=== PATIENT | female | born 1950 | race Caucasian/White ===

== ENCOUNTER 2020-03-19 08:29 | Outpatient (CLI) | payer MEDICARE | END 2020-03-19 23:59 | disposition home or self-care (01) | LOC: CVU 08:29 | PROVIDERS: ATTEND Internal Medicine Cardiovascular Disease | DX: I08.3 Combined rheumatic disorders of mitral, aortic and tricuspid valves (principal) | CPT/HCPCS: 93306 ==

== ENCOUNTER 2020-04-25 14:35 | Outpatient (CLI) | payer MEDICARE ==
[2020-04-25] MEDS ORDERED: CLOP75TA52 PO (15:18)
[2020-04-25] MEDS ORDERED: BENA20TA54 PO (15:18)
[2020-04-25] MEDS ORDERED: ASPI-496 PO (15:18)
[2020-04-25] MEDS ORDERED: ATOR80TA PO (15:18)
[2020-04-25] MEDS ORDERED: GLIP5TAB10 PO (15:18)
[2020-04-25] MEDS ORDERED: FERR-46 PO (15:18)
[2020-04-25] MEDS ORDERED: CARV-39 PO (15:18)
[2020-04-25] MEDS ORDERED: AMLO2.5T5 PO (15:18)
[2020-04-25 16:00] LABS: BASOPHILS # (AUTO) 0.08 x10^3/uL (0-0.1); BASOPHILS % (AUTO) 1 % (0-1); EOSINOPHILS # (AUTO) 0.19 x10^3/uL (0-0.4); EOSINOPHILS % (AUTO) 2 % (1-7); LYMPHOCYTES # (AUTO) 1.78 x10^3/uL (1-3.4); LYMPHOCYTES % (AUTO) 22 % (22-44); MD NO; MEAN CORPUSCULAR HEMOGLOBIN 31.3 pg (27.0-34.8); MEAN CORPUSCULAR HGB CONC 32.9 g/dL (32.4-35.8); MEAN CORPUSCULAR VOLUME 95.3 fL (80-100); MEAN PLATELET VOLUME 6.9 fL (7.4-10.4); MONOCYTES # (AUTO) 0.48 x10^3/uL (0.2-0.8); MONOCYTES % (AUTO) 6 % (2-9); NEUTROPHILS # (AUTO) 5.57 x10^3/uL (1.8-6.8); NEUTROPHILS % (AUTO) 69 % (42-75); PLATELET COUNT 289 x10^3/uL (130-400); RED BLOOD COUNT 3.53 x10^6/uL (3.82-5.3); RED CELL DISTRIBUTION WIDTH 16.4 % (9.6-15.2)
[2020-04-25 16:08] LABS: INTERNATIONAL NORMALIZED RATIO 1.07 (0.93-1.1); PROTHROMBIN TIME 11.4 Seconds (9.6-11.5)
[2020-04-25 16:10] LABS: ALBUMIN 3.7 g/dL (3.4-5.0); ANION GAP 8 mmol/L (5-15); CHLORIDE 96 mmol/L (98-107)
[2020-04-25 16:13] LABS: ALANINE AMINOTRANSFERASE 32 U/L (12-78); ALKALINE PHOSPHATASE 95 U/L (45-117); BILIRUBIN,TOTAL 0.3 mg/dL (0.2-1.0); CREATININE 4.61 mg/dL (0.55-1.02); TOTAL PROTEIN 7.3 g/dL (6.4-8.2)
== END 2020-04-25 23:59 | disposition home or self-care (01) ==
LOC: STAR 14:35
PROVIDERS: ATTEND Surgery
DX: Z01.818 Encounter for other preprocedural examination (principal); Z11.59 Encounter for screening for other viral diseases; N18.6 End stage renal disease
CPT/HCPCS: 36415; 80053; 85025; 85610; 85730; 93005; U0001

== ENCOUNTER 2020-04-30 16:15 | Day surgery (SDC) | payer MEDICARE ==
[~2020-04-30] VITALS: Ht 154.9 cm; Wt 52.4 kg
[~2020-04-30 16:15] MED LIST: AMLO2.5T5 PO; ASPI-496 PO; ATOR80TA PO; BENA20TA54 PO; CARV-39 PO; CLOP75TA52 PO; FERR-46 PO; GLIP5TAB10 PO
[2020-04-30] MEDS ORDERED: hydrALAzine 20 MG/ML, 1ML IV ONE (16:30)
[2020-04-30] MEDS ORDERED: CHLORHEXIDINE 15 ML UDC MM ONE (16:30)
[2020-04-30] MEDS ORDERED: CHLORHEXIDINE 15 ML UDC ONE (16:41)
[2020-04-30] MEDS ORDERED: hydrALAzine 20 MG/ML, 1ML ONE (16:42)
[2020-04-30] MEDS ORDERED: OXYcodone 5 MG/5 ML ORAL.SOL UDC PO PRN (18:00)
[2020-04-30] MEDS ORDERED: SODIUM CHLORIDE 0.9% 1,000 ML IV SCH (18:00)
[2020-04-30] MEDS ORDERED: FENTANYL PF 100 MCG/2ML ONE (18:49)
[2020-04-30] MEDS ORDERED: PROTAMINE SULFATE 10 MG/ML, 5ML ONE (18:51)
[2020-04-30] MEDS ORDERED: THROMBIN 5,000 UNIT VIAL TP ONE (18:52)
[2020-04-30] MEDS ORDERED: BACITRACIN 50,000 UNIT ONE (18:52)
[2020-04-30] MEDS ORDERED: HEPARIN 1,000 UNITS/ML, 30ML ONE (18:52)
[2020-04-30] MEDS ORDERED: BUPIVACAINE/PF 0.25% ONE (19:07)
[2020-04-30] MEDS ORDERED: HEPARIN 1,000 UNITS/ML, 10ML ONE (19:07)
[2020-04-30] MEDS ORDERED: MIDAZOLAM 1 MG/ML, 2ML ONE (19:19)
[2020-04-30] MEDS ORDERED: PROPOFOL 10 MG/ML, 50ML ONE (19:20)
[2020-04-30] MEDS ORDERED: CEFAZOLIN 1,000 MG ONE (19:20)
[2020-04-30] MEDS ORDERED: LIDOCAINE 1%, 20ML ONE (19:26)
[2020-04-30] MEDS ORDERED: HYDR-3237 PO (21:46)
== END 2020-04-30 22:20 | disposition home or self-care (01) ==
LOC: OR 16:15 → 4NE 21:00 → OR 22:20
PROVIDERS: ATTEND Surgery
DX: E11.22 Type 2 diabetes mellitus with diabetic chronic kidney disease (principal); I13.2 Hypertensive heart and chronic kidney disease with heart failure and with stage 5 chronic kidney disease, or end stage renal disease; N18.6 End stage renal disease; I50.9 Heart failure, unspecified; I25.10 Atherosclerotic heart disease of native coronary artery without angina pectoris; I25.2 Old myocardial infarction; Z79.82 Long term (current) use of aspirin; Z79.84 Long term (current) use of oral hypoglycemic drugs; Z79.02 Long term (current) use of antithrombotics/antiplatelets; Z79.899 Other long term (current) drug therapy; Z88.0 Allergy status to penicillin; Z99.2 Dependence on renal dialysis; Z98.890 Other specified postprocedural states; Z83.3 Family history of diabetes mellitus; Z82.49 Family history of ischemic heart disease and other diseases of the circulatory system
CPT/HCPCS: 36821; 82962; J0360; J0690; J1644; J2250; J2704; J3010; J3490; G0378; J2720

== ENCOUNTER → 2020-09-02 | Outpatient (CLI) | payer MEDICARE ==
[~2020-09-02] MED LIST changes: +HYDR-3237 PO
== END | disposition home or self-care (01) ==
LOC: CFH 14:07
PROVIDERS: ATTEND Internal Medicine Cardiovascular Disease
DX: I08.8 Other rheumatic multiple valve diseases (principal); I25.10 Atherosclerotic heart disease of native coronary artery without angina pectoris; I11.9 Hypertensive heart disease without heart failure; I10 Essential (primary) hypertension; E78.5 Hyperlipidemia, unspecified; I25.2 Old myocardial infarction; E11.9 Type 2 diabetes mellitus without complications
CPT/HCPCS: 93306

== ENCOUNTER 2021-03-06 14:35 | Inpatient (IN) | payer MEDICARE ==
[~2021-03-06] VITALS: Ht 154.9 cm; Wt 56.8 kg
[2021-03-06 15:23] LABS: ALBUMIN 3.9 g/dL (3.4-5.0); ANION GAP 8 mmol/L (5-15); BASOPHILS % (AUTO) 1 % (0-1); CALCIUM 10.2 mg/dL (8.5-10.1); CHLORIDE 105 mmol/L (98-107); EOSINOPHILS % (AUTO) 4 % (1-7); LYMPHOCYTES % (AUTO) 14 % (22-44); MEAN CORPUSCULAR HEMOGLOBIN 30.4 pg (27.0-34.8); MEAN CORPUSCULAR HGB CONC 32.8 g/dL (32.4-35.8); MEAN PLATELET VOLUME 7.4 fL (7.4-10.4); MONOCYTES % (AUTO) 4 % (2-9); NEUTROPHILS % (AUTO) 77 % (42-75); PLATELET COUNT 239 x10^3/uL (130-400); RED BLOOD COUNT 4.06 x10^6/uL (3.82-5.3); RED CELL DISTRIBUTION WIDTH 17.2 % (9.6-15.2)
[2021-03-06 15:26] LABS: ALANINE AMINOTRANSFERASE 29 U/L (12-78); ALKALINE PHOSPHATASE 82 U/L (45-117); BILIRUBIN,TOTAL 0.5 mg/dL (0.2-1.0); CREATININE 8.22 mg/dL (0.55-1.02); TOTAL PROTEIN 7.5 g/dL (6.4-8.2)
--- NOTE | 2021-03-06 16:12 | NUR ---
FACTORY WORKER: PT AMBULATORY TO ROOM FROM LOBBY AT THIS TIME.
[2021-03-06] MEDS ORDERED: DIAZEPAM 5 MG TABLET ONE (16:58)
[2021-03-06] MEDS ORDERED: DIAZEPAM 5 MG TABLET PO ONE (17:00)
--- NOTE | 2021-03-06 17:08 | NUR ---
PT BACK FROM CT. BP CUFF, PULSE OX PLACED, VSS/UPDATED IN COMPUTER. VALIUM GIVEN FOR L RIB AND FLANK PAIN. CALL LIGHT WITHIN REACH. WARM BLANKET AND PILLOW PROVIDED, LIGHTS DIMMED.
[2021-03-06] MEDS ORDERED: ASPI81TA45 PO (18:29)
[2021-03-06] MEDS ORDERED: GABAPENTIN PO (18:29)
[2021-03-06] MEDS ORDERED: [UNRECOGNIZED DRUG - OTHER] PO (18:29)
[2021-03-06] MEDS ORDERED: HYDR-3342 PO (18:29)
[2021-03-06] MEDS ORDERED: METH-640 PO (18:29)
--- NOTE | 2021-03-06 18:57 | NUR ---
BEDSIDE REPORT FROM QUINTON WHITTEN
[2021-03-06 19:20] LABS: BASOPHILS % (AUTO) 1 % (0-1); EOSINOPHILS % (AUTO) 4 % (1-7); LYMPHOCYTES % (AUTO) 15 % (22-44); MEAN CORPUSCULAR HEMOGLOBIN 30.4 pg (27.0-34.8); MEAN CORPUSCULAR HGB CONC 33.1 g/dL (32.4-35.8); MEAN PLATELET VOLUME 7.2 fL (7.4-10.4); MONOCYTES % (AUTO) 4 % (2-9); NEUTROPHILS % (AUTO) 77 % (42-75); PLATELET COUNT 235 x10^3/uL (130-400); RED BLOOD COUNT 3.83 x10^6/uL (3.82-5.3); RED CELL DISTRIBUTION WIDTH 17.1 % (9.6-15.2)
[2021-03-06 19:31] LABS: INTERNATIONAL NORMALIZED RATIO 1.16 (0.93-1.1); PROTHROMBIN TIME 12.4 Seconds (9.6-11.5)
[2021-03-06 19:33] LABS: ALBUMIN 3.6 g/dL (3.4-5.0); ANION GAP 10 mmol/L (5-15); CALCIUM 9.7 mg/dL (8.5-10.1); CHLORIDE 107 mmol/L (98-107); CREATININE 8.34 mg/dL (0.55-1.02)
[2021-03-06] MEDS ORDERED: MORPHINE SULFATE 4 MG/ML, 1ML ONE (20:28)
[2021-03-06] MEDS: HEPARIN 5,000 UNITS/ML, 1ML SQ SCH (20:30)
[2021-03-06] MEDS ORDERED: PROMETHAZINE 25 MG/ML, 1ML IM PRN (20:30)
[2021-03-06] MEDS ORDERED: ONDANSETRON 2MG/ML, 2ML IVPush PRN (20:30)
[2021-03-06] MEDS ORDERED: POLYETHYLENE GLYCOL 17 GM PACKET PO PRN (20:30)
[2021-03-06] MEDS ORDERED: ONDANSETRON ODT 4 MG PO PRN (20:30)
[2021-03-06] MEDS ORDERED: BISACODYL 10 MG SUPP PR PRN (20:30)
[2021-03-06] MEDS ORDERED: DOCUSATE 100 MG CAPSULE PO PRN (20:30)
--- NOTE | 2021-03-06 20:30 | NUR ---
PT REPORTING NO IMPROVEMENT OF PAIN, PT REQUESTING PAIN MEDICATION AT THIS TIME. PT MEDICATED PER EMAR. NO ADDITIONAL NEEDS AT THIS TIME. CALL LIGHT AND PERSONAL BELONGINGS WITHIN REACH. SPOUSE AT BEDSIDE.
[2021-03-06] MEDS: morphine SULFATE 10 MG/ML, 1ML IVPush PRN (20:33)
--- NOTE | 2021-03-06 20:54 | NUR ---
Pt to be admitted to TELE2, room 406. Report called to JAYCEE.
[2021-03-06 21:22] VITALS: BP 186/63
[2021-03-06] MEDS: MULTIVITS,STRESS FORMULA 1 TABLET PO SCH (21:30)
[2021-03-06 21:49] VITALS: BP 182/65
[2021-03-06] MEDS ORDERED: DILTIAZEM 5 MG/ML, 5ML IVPush PRN (22:00)
[2021-03-06] MEDS: BENAZEPRIL 20 MG TABLET PO SCH (22:01)
[2021-03-06] MEDS: ATORVASTATIN 80 MG TABLET PO SCH (22:01)
[2021-03-06] MEDS: GABAPENTIN 100 MG CAPSULE PO SCH (22:01)
[2021-03-06 22:51] VITALS: BP 174/64
[2021-03-07] VITALS (7 sets, daily range): BP systolic 162–199; BP diastolic 62–75
[2021-03-07] MEDS: OXYcodone IR 5MG TABLET PO PRN ×3 (01:16→20:10)
[2021-03-07] MEDS: HEPARIN 5,000 UNITS/ML, 1ML SQ SCH ×3 (04:30→20:12)
[2021-03-07] MEDS: ACETAMINOPHEN 325 MG TABLET PO PRN (04:52)
[2021-03-07 06:26] LABS: BASOPHILS % (AUTO) 2 % (0-1); EOSINOPHILS % (AUTO) 4 % (1-7); LYMPHOCYTES % (AUTO) 17 % (22-44); MEAN CORPUSCULAR HEMOGLOBIN 30.2 pg (27.0-34.8); MEAN CORPUSCULAR HGB CONC 32.9 g/dL (32.4-35.8); MEAN PLATELET VOLUME 7.4 fL (7.4-10.4); MONOCYTES % (AUTO) 3 % (2-9); NEUTROPHILS % (AUTO) 74 % (42-75); PLATELET COUNT 217 x10^3/uL (130-400); RED BLOOD COUNT 3.68 x10^6/uL (3.82-5.3); RED CELL DISTRIBUTION WIDTH 17.2 % (9.6-15.2)
[2021-03-07 06:27] LABS: CHLORIDE 108 mmol/L (98-107)
[2021-03-07 06:43] LABS: ALANINE AMINOTRANSFERASE 25 U/L (12-78); ALBUMIN 3.3 g/dL (3.4-5.0); ALKALINE PHOSPHATASE 64 U/L (45-117); ANION GAP 10 mmol/L (5-15); BILIRUBIN,TOTAL 0.4 mg/dL (0.2-1.0); CALCIUM 9.2 mg/dL (8.5-10.1); CHOL/HDL RATIO 2.4; CHOLESTEROL, TOTAL 93 mg/dL (140-239); CREATININE 8.63 mg/dL (0.55-1.02); HDL CHOL % 41 % (28-40); HDL CHOLESTEROL (DIRECT) 38 mg/dL (40-60); LDL CHOLESTEROL,CALCULATED 27 mg/dL (54-169); LDL/HDL RATIO 0.7 (0.5-3.0); TOTAL PROTEIN 6.4 g/dL (6.4-8.2); TRIGLYCERIDES 139 mg/dL (50-200); VLDL CHOLESTEROL 28 mg/dL (0-25)
[2021-03-07 08:51] LABS: MICROSCOPIC AUTO
[2021-03-07] MEDS: METHOCARBAMOL 750 MG TABLET PO SCH (09:47)
[2021-03-07] MEDS: GABAPENTIN 100 MG CAPSULE PO SCH ×3 (09:47→20:09)
[2021-03-07] MEDS: ASPIRIN 81 MG TABLET EC PO SCH (09:48)
[2021-03-07] MEDS: BENAZEPRIL 20 MG TABLET PO SCH ×2 (09:48→20:09)
[2021-03-07] MEDS: CLOPIDOGREL 75 MG TABLET PO SCH (09:48)
[2021-03-07] MEDS: hydrALAzine 20 MG/ML, 1ML IVPush PRN (12:17)
[2021-03-07] MEDS: CARVEDILOL 25 MG TABLET PO SCH (18:29)
[2021-03-07] MEDS: ATORVASTATIN 80 MG TABLET PO SCH (20:09)
[2021-03-07] MEDS: MULTIVITS,STRESS FORMULA 1 TABLET PO SCH (20:09)
[2021-03-08] MEDS: ACETAMINOPHEN 325 MG TABLET PO PRN ×2 (00:08→08:35)
[2021-03-08 00:18] VITALS: BP 169/66
[2021-03-08] MEDS: morphine SULFATE 10 MG/ML, 1ML IVPush PRN (03:06)
[2021-03-08] MEDS: HEPARIN 5,000 UNITS/ML, 1ML SQ SCH ×2 (03:50→08:32)
[2021-03-08 06:11] VITALS: BP 173/64
[2021-03-08] MEDS: CARVEDILOL 25 MG TABLET PO SCH (06:13)
[2021-03-08] MEDS ORDERED: AMLODIPINE 10 MG TAB ONE (08:12)
[2021-03-08] MEDS ORDERED: OXYC1TAB16 PO (08:21)
[2021-03-08] MEDS ORDERED: NAPR220C62 PO (08:21)
[2021-03-08] MEDS: GABAPENTIN 100 MG CAPSULE PO SCH (08:30)
[2021-03-08] MEDS: METHOCARBAMOL 750 MG TABLET PO SCH (08:30)
[2021-03-08] MEDS: BENAZEPRIL 20 MG TABLET PO SCH (08:31)
[2021-03-08] MEDS: ASPIRIN 81 MG TABLET EC PO SCH (08:31)
[2021-03-08] MEDS: CLOPIDOGREL 75 MG TABLET PO SCH (08:31)
[2021-03-08 08:59] VITALS: BP 190/109
[2021-03-08] MEDS ORDERED: AMLODIPINE 10 MG TAB PO SCH (09:00)
[2021-03-08 12:56] VITALS: BP 171/55
[2021-03-08] MEDS: hydrALAzine 20 MG/ML, 1ML IVPush PRN (13:07)
== END 2021-03-08 14:13 | disposition home or self-care (01) | DRG 183 ==
LOC: ED 18:19 → EDIP 18:58 → 4WST 21:16 → DCLOUNGE 03-08 14:03
PROVIDERS: ADMIT Internal Medicine; ATTEND Internal Medicine
DX: S22.42XA Multiple fractures of ribs, left side, initial encounter for closed fracture (principal); N18.6 End stage renal disease; I13.2 Hypertensive heart and chronic kidney disease with heart failure and with stage 5 chronic kidney disease, or end stage renal disease; J98.11 Atelectasis; N25.0 Renal osteodystrophy; D63.1 Anemia in chronic kidney disease; E11.22 Type 2 diabetes mellitus with diabetic chronic kidney disease; E78.00 Pure hypercholesterolemia, unspecified; E78.5 Hyperlipidemia, unspecified; G89.29 Other chronic pain; I50.9 Heart failure, unspecified; W17.89XA Other fall from one level to another, initial encounter; Z79.02 Long term (current) use of antithrombotics/antiplatelets; Z99.2 Dependence on renal dialysis; Y93.89 Activity, other specified; Y92.89 Other specified places as the place of occurrence of the external cause; Y99.8 Other external cause status; Z82.49 Family history of ischemic heart disease and other diseases of the circulatory system; Z88.0 Allergy status to penicillin; Z79.899 Other long term (current) drug therapy; Z79.82 Long term (current) use of aspirin
CPT/HCPCS: 36415; 71250; 80048; 80053; 80061; 81001; 82040; 83036; 83735; 84100; 84443; 85025; 85610; 87086; 90935; 93005; 96374; 99285; G0378; J0360; J2270

== ENCOUNTER 2021-03-14 09:24 | Observation (INO) | payer MEDICARE ==
[~2021-03-14] VITALS: Ht 154.9 cm; Wt 54.6 kg
[~2021-03-14 09:24] MED LIST changes: +ASPI81TA45 PO; +GABAPENTIN PO; +HYDR-3342 PO; +METH-640 PO; +NAPR220C62 PO; +OXYC1TAB17 PO; +[UNRECOGNIZED DRUG - OTHER] PO
--- NOTE | 2021-03-14 09:50 | NUR ---
PT TO ROOM 33 W/ C/O N/V X 1 WK. DENIES DIARRHEA. ALSO C/O INCREASED WEAKNESS AND LOOS OF APPETITE. PT HAD DIALYSIS LAST WEDNESDAY 7 DAYS AGO. PT WAS SEEN HERE 1 WK AGO AFTER FALLING OUT OF A HAMMOCK AND HAVING RIB FX. DENIES CP/SOB/COUGH. PT RESTING ON GURNEY. NADN. MONITORS APPLIED. VSS. WARM BLANKET PROVIDED. TAQUERIA WATT AT BEDSIDE FOR EVAL.
[2021-03-14] MEDS ORDERED: SODIUM CHLORIDE 0.9% 1,000ML IVBOLUS ONE (10:00)
[2021-03-14] MEDS ORDERED: SODIUM CHLORIDE FLUSH 10ML SYR IVF ONE (10:00)
[2021-03-14] MEDS ORDERED: FAMOTIDINE 20 MG/2 ML IVPush ONE (10:00)
[2021-03-14] MEDS ORDERED: ONDANSETRON 2MG/ML, 2ML IVPush ONE (10:00)
[2021-03-14] MEDS ORDERED: FAMOTIDINE 20 MG/2 ML ONE (10:13)
[2021-03-14] MEDS ORDERED: ONDANSETRON 2MG/ML, 2ML ONE (10:13)
[2021-03-14 10:26] LABS: BASOPHILS % (AUTO) 1 % (0-1); EOSINOPHILS % (AUTO) 1 % (1-7); LYMPHOCYTES % (AUTO) 7 % (22-44); MEAN CORPUSCULAR HEMOGLOBIN 29.9 pg (27.0-34.8); MEAN CORPUSCULAR HGB CONC 33.1 g/dL (32.4-35.8); MEAN PLATELET VOLUME 7.7 fL (7.4-10.4); MONOCYTES % (AUTO) 3 % (2-9); NEUTROPHILS % (AUTO) 87 % (42-75); PLATELET COUNT 249 x10^3/uL (130-400); RED BLOOD COUNT 4.12 x10^6/uL (3.82-5.3); RED CELL DISTRIBUTION WIDTH 17.2 % (9.6-15.2)
[2021-03-14 10:33] LABS: ALANINE AMINOTRANSFERASE 22 U/L (12-78); ALBUMIN 3.6 g/dL (3.4-5.0); ANION GAP 12 mmol/L (5-15); CALCIUM 9.9 mg/dL (8.5-10.1); CHLORIDE 99 mmol/L (98-107)
[2021-03-14 10:35] LABS: ALKALINE PHOSPHATASE 80 U/L (45-117); BILIRUBIN,TOTAL 0.7 mg/dL (0.2-1.0); TOTAL PROTEIN 7.4 g/dL (6.4-8.2)
[2021-03-14 10:46] LABS: MICROSCOPIC AUTO
[2021-03-14 10:50] LABS: MD SCAN
[2021-03-14] MEDS ORDERED: SODIUM CHLORIDE FLUSH 10ML SYR IVF PRN (11:00)
--- NOTE | 2021-03-14 11:10 | NUR ---
PT RESTING ON GURNEY. NADN. BURDICK.
--- NOTE | 2021-03-14 12:06 | NUR ---
PT RESTING ON GURNEY. NADN. BURDICK.
--- NOTE | 2021-03-14 12:25 | NUR ---
REPORT GIVEN TO BLACK KEY RN. ALL QUESTIONS ANSWERED. AWAITING PT TRANSPORT.
[2021-03-14] MEDS ORDERED: ACETAMINOPHEN 325 MG TABLET PO PRN (12:30)
[2021-03-14] MEDS ORDERED: ONDANSETRON ODT 4 MG PO PRN (12:30)
[2021-03-14] MEDS: HEPARIN 5,000 UNITS/ML, 1ML SQ SCH ×2 (12:30→19:52)
[2021-03-14] MEDS ORDERED: ENALAPRILAT 1.25 MG/ML, 2ML IVPush PRN (12:30)
[2021-03-14 13:10] VITALS: BP 193/67
[2021-03-14] MEDS: ONDANSETRON 2MG/ML, 2ML IVPush PRN ×2 (13:16→18:25)
[2021-03-14 18:12] VITALS: BP 210/69
[2021-03-14] MEDS ORDERED: ENALAPRILAT 1.25 MG/ML, 1ML ONE ×2 (18:12→19:42)
[2021-03-14 19:47] VITALS: BP 169/77
[2021-03-14 19:56] VITALS: BP 167/67
[2021-03-14] MEDS: CARVEDILOL 25 MG TABLET PO SCH (20:09)
[2021-03-14] MEDS: ATORVASTATIN 80 MG TABLET PO SCH (20:10)
[2021-03-14] MEDS: AMLODIPINE 5 MG TABLET PO SCH (20:10)
[2021-03-14] MEDS: BENAZEPRIL 20 MG TABLET PO SCH (20:10)
[2021-03-14 21:58] VITALS: BP 152/64
[2021-03-15 01:36] VITALS: BP 142/67
[2021-03-15] MEDS: HEPARIN 5,000 UNITS/ML, 1ML SQ SCH ×3 (04:30→20:28)
[2021-03-15 05:48] LABS: BASOPHILS % (AUTO) 1 % (0-1); EOSINOPHILS % (AUTO) 1 % (1-7); LYMPHOCYTES % (AUTO) 18 % (22-44); MEAN CORPUSCULAR HEMOGLOBIN 30.3 pg (27.0-34.8); MEAN CORPUSCULAR HGB CONC 34.4 g/dL (32.4-35.8); MEAN PLATELET VOLUME 7.1 fL (7.4-10.4); MONOCYTES % (AUTO) 7 % (2-9); NEUTROPHILS % (AUTO) 74 % (42-75); PLATELET COUNT 247 x10^3/uL (130-400); RED CELL DISTRIBUTION WIDTH 16.8 % (9.6-15.2)
[2021-03-15 05:52] LABS: MD NO
[2021-03-15] MEDS: ONDANSETRON 2MG/ML, 2ML IVPush PRN ×2 (05:54→11:09)
[2021-03-15 06:01] LABS: ANION GAP 10 mmol/L (5-15); CALCIUM 9.1 mg/dL (8.5-10.1); CHLORIDE 95 mmol/L (98-107); CREATININE 7.06 mg/dL (0.55-1.02)
[2021-03-15 07:46] VITALS: BP 148/64
[2021-03-15] MEDS ORDERED: PROCHLORPERAZINE 10MG TABLET PO PRN (08:30)
[2021-03-15] MEDS: AMLODIPINE 5 MG TABLET PO SCH ×2 (09:00→20:27)
[2021-03-15] MEDS: METHOCARBAMOL 750 MG TABLET PO SCH (09:00)
[2021-03-15] MEDS: ASPIRIN 81 MG TABLET EC PO SCH ×2 (09:00→16:50)
[2021-03-15] MEDS: BENAZEPRIL 20 MG TABLET PO SCH ×2 (09:00→20:28)
[2021-03-15] MEDS: CARVEDILOL 25 MG TABLET PO SCH ×2 (09:00→20:27)
[2021-03-15] MEDS ORDERED: DEXAMETHASONE 4 MG/ML, 5ML IVPush ONE (09:30)
[2021-03-15] MEDS ORDERED: PROCHLORPERAZINE 5 MG/ML, 2ML IVPush PRN (11:30)
[2021-03-15 13:49] VITALS: BP 133/62
[2021-03-15] MEDS: CLOPIDOGREL 75 MG TABLET PO SCH (16:50)
[2021-03-15] MEDS ORDERED: LIDOCAINE/PRILOCAINE CRM W/TEG 5GM TP ONE ×2 (19:00)
[2021-03-15 19:21] VITALS: BP 138/54
[2021-03-15 20:24] VITALS: BP 119/58
[2021-03-15] MEDS: ATORVASTATIN 80 MG TABLET PO SCH (20:28)
[2021-03-16 01:05] VITALS: BP 123/53
[2021-03-16] MEDS: HEPARIN 5,000 UNITS/ML, 1ML SQ SCH (04:30)
[2021-03-16 06:59] VITALS: BP 137/63
[2021-03-16] MEDS: BENAZEPRIL 20 MG TABLET PO SCH (09:35)
[2021-03-16] MEDS: CARVEDILOL 25 MG TABLET PO SCH (09:35)
[2021-03-16] MEDS: METHOCARBAMOL 750 MG TABLET PO SCH (09:35)
[2021-03-16] MEDS: CLOPIDOGREL 75 MG TABLET PO SCH (09:35)
[2021-03-16] MEDS: AMLODIPINE 5 MG TABLET PO SCH (09:36)
[2021-03-16] MEDS: ASPIRIN 81 MG TABLET EC PO SCH (09:36)
== END 2021-03-16 10:54 | disposition home or self-care (01) ==
LOC: ED 10:37 → INTOOBSV 10:53 → EDIP 10:53 → SUATTDRO 11:12 → 4WST 12:46 → DCLOUNGE 03-16 10:52
PROVIDERS: ADMIT Hospitalist; ATTEND Hospitalist
DX: R11.2 Nausea with vomiting, unspecified (principal); I12.0 Hypertensive chronic kidney disease with stage 5 chronic kidney disease or end stage renal disease; E11.22 Type 2 diabetes mellitus with diabetic chronic kidney disease; N18.6 End stage renal disease; D63.1 Anemia in chronic kidney disease; J96.01 Acute respiratory failure with hypoxia; E78.5 Hyperlipidemia, unspecified; S22.42XD Multiple fractures of ribs, left side, subsequent encounter for fracture with routine healing; I25.10 Atherosclerotic heart disease of native coronary artery without angina pectoris; E78.00 Pure hypercholesterolemia, unspecified; E11.65 Type 2 diabetes mellitus with hyperglycemia; T40.2X5A Adverse effect of other opioids, initial encounter; Z79.899 Other long term (current) drug therapy; Z99.2 Dependence on renal dialysis; Z79.82 Long term (current) use of aspirin; Z88.0 Allergy status to penicillin; W19.XXXD Unspecified fall, subsequent encounter
CPT/HCPCS: 36415; 80048; 80053; 81001; 82962; 83690; 85025; 86704; 86706; 87340; 93005; 96374; 96375; 96376; 99284; G0378; J0780; J1100; J2405; J7030; Q0164

== ENCOUNTER 2021-04-04 00:05 | Inpatient (IN) | payer MEDICARE ==
[~2021-04-04] VITALS: Ht 154.9 cm; Wt 57.9 kg
[2021-04-04] MEDS ORDERED: SODIUM CHLORIDE FLUSH 10ML SYR IVF ONE (00:30)
--- NOTE | 2021-04-04 01:04 | NUR ---
Report from MARIA DOLORES Tabares. First contact with pt, pt requesting o2. O2 sats are 89-94% on RA. Placed on 2L NC. Pt states she would like to wait for IV to see if it is necessary. Earlier IV placed by Rayshawn was dislodged inadvertently. Pt is ESRD with left upper arm shunt, has missed approx 1 week of dialysis due to "restless legs". Informed pt probably highly likely she will need IV but she refused. AIDET provided
[2021-04-04 01:05] LABS: BASOPHILS % (AUTO) 1 % (0-1); EOSINOPHILS % (AUTO) 2 % (1-7); LYMPHOCYTES % (AUTO) 15 % (22-44); MEAN CORPUSCULAR HEMOGLOBIN 29.9 pg (27.0-34.8); MEAN CORPUSCULAR HGB CONC 33.1 g/dL (32.4-35.8); MONOCYTES % (AUTO) 3 % (2-9); NEUTROPHILS % (AUTO) 79 % (42-75); PLATELET COUNT 198 x10^3/uL (130-400); RED BLOOD COUNT 2.41 x10^6/uL (3.82-5.3); RED CELL DISTRIBUTION WIDTH 17.6 % (9.6-15.2)
[2021-04-04 01:13] LABS: ALANINE AMINOTRANSFERASE 20 U/L (12-78); ALBUMIN 3.4 g/dL (3.4-5.0); ANION GAP 13 mmol/L (5-15); CALCIUM 8.4 mg/dL (8.5-10.1); CHLORIDE 102 mmol/L (98-107); CREATININE 7.14 mg/dL (0.55-1.02); MD NO
[2021-04-04 01:30] LABS: ALKALINE PHOSPHATASE 66 U/L (45-117); BILIRUBIN,TOTAL 0.6 mg/dL (0.2-1.0); TOTAL PROTEIN 6.5 g/dL (6.4-8.2)
--- NOTE | 2021-04-04 01:44 | NUR ---
o2 sats down to 88-89 o2 up to 4L. IV placed but only 22ga. Left arm shunt pos thrill. Waiting for admission.
[2021-04-04] MEDS ORDERED: PRAM1.5T6 PO (01:53)
[2021-04-04] MEDS ORDERED: ASPIRIN 325 MG TABLET PO ONE (02:00)
--- NOTE | 2021-04-04 02:12 | NUR ---
Report to MARIA DOLORES Arboleda. Dr Díaz is in with pt now; will transport when finished.
[2021-04-04] MEDS ORDERED: GABAPENTIN 100 MG CAPSULE PO PRN (02:30)
[2021-04-04] MEDS ORDERED: ONDANSETRON 2MG/ML, 2ML IVPush PRN (02:30)
[2021-04-04] MEDS ORDERED: hydrALAzine 20 MG/ML, 1ML IVPush PRN (02:30)
[2021-04-04 02:39] VITALS: BP 128/68
[2021-04-04] MEDS ORDERED: TEMAZEPAM 15 MG CAPSULE PO ONE (03:30)
[2021-04-04 07:10] LABS: TROPONIN I 0.074 ng/mL (0.000-0.045)
[2021-04-04 07:30] VITALS: BP 127/64
[2021-04-04] MEDS: PRAMIPEXOLE 0.5MG TABLET PO SCH (08:46)
[2021-04-04] MEDS: CARVEDILOL 25 MG TABLET PO SCH ×2 (08:47→21:25)
[2021-04-04] MEDS: BENAZEPRIL 20 MG TABLET PO SCH ×2 (08:47→21:21)
[2021-04-04] MEDS: AMLODIPINE 5 MG TABLET PO SCH ×2 (08:47→21:25)
[2021-04-04] MEDS: ASPIRIN 81 MG TABLET EC PO SCH (08:51)
[2021-04-04] MEDS ORDERED: DARBEPOETIN 100 MCG/ML SQ SCH (09:00)
[2021-04-04 15:04] VITALS: BP 132/66
[2021-04-04] MEDS: INSULIN LISPRO 100 UNITS/ML, PEN SQ-INSULIN SCH ×3 (15:27→22:50)
[2021-04-04] MEDS: METHOCARBAMOL 750 MG TABLET PO SCH (16:22)
[2021-04-04] MEDS: ACETAMINOPHEN 325 MG TABLET PO PRN (19:02)
[2021-04-04 20:08] VITALS: BP 146/64
[2021-04-04] MEDS: ATORVASTATIN 80 MG TABLET PO SCH (21:22)
[2021-04-04] MEDS: TEMAZEPAM 15 MG CAPSULE PO PRN (21:24)
[2021-04-05 01:37] VITALS: BP 140/65
[2021-04-05 04:53] LABS: BASOPHILS % (AUTO) 1 % (0-1); EOSINOPHILS % (AUTO) 1 % (1-7); LYMPHOCYTES % (AUTO) 21 % (22-44); MEAN CORPUSCULAR HEMOGLOBIN 30.4 pg (27.0-34.8); MEAN CORPUSCULAR HGB CONC 33.8 g/dL (32.4-35.8); MEAN PLATELET VOLUME 7.8 fL (7.4-10.4); MONOCYTES % (AUTO) 6 % (2-9); NEUTROPHILS % (AUTO) 71 % (42-75); PLATELET COUNT 201 x10^3/uL (130-400); RED BLOOD COUNT 2.39 x10^6/uL (3.82-5.3); RED CELL DISTRIBUTION WIDTH 18.1 % (9.6-15.2)
[2021-04-05 04:58] LABS: MD NO
[2021-04-05 05:02] LABS: ANION GAP 7 mmol/L (5-15); CALCIUM 8.1 mg/dL (8.5-10.1); CHLORIDE 101 mmol/L (98-107)
[2021-04-05 05:31] LABS: CREATININE 4.58 mg/dL (0.55-1.02)
[2021-04-05] MEDS: INSULIN LISPRO 100 UNITS/ML, PEN SQ-INSULIN SCH ×4 (07:00→20:48)
[2021-04-05 08:12] VITALS: BP 156/68
[2021-04-05] MEDS: BENAZEPRIL 20 MG TABLET PO SCH ×2 (08:21→20:33)
[2021-04-05 08:59] VITALS: BP 138/63
[2021-04-05] MEDS: METHOCARBAMOL 750 MG TABLET PO SCH (09:28)
[2021-04-05] MEDS: AMLODIPINE 5 MG TABLET PO SCH ×2 (09:28→20:33)
[2021-04-05] MEDS: PRAMIPEXOLE 0.5MG TABLET PO SCH (09:29)
[2021-04-05] MEDS: ASPIRIN 81 MG TABLET EC PO SCH (09:29)
[2021-04-05] MEDS: CARVEDILOL 25 MG TABLET PO SCH ×2 (09:29→20:33)
[2021-04-05] MEDS: ACETAMINOPHEN 325 MG TABLET PO PRN (12:54)
[2021-04-05 16:10] VITALS: BP 124/57
[2021-04-05 20:02] VITALS: BP 132/64
[2021-04-05] MEDS: TEMAZEPAM 15 MG CAPSULE PO PRN (20:33)
[2021-04-05] MEDS: ATORVASTATIN 80 MG TABLET PO SCH (20:33)
[2021-04-06 01:14] VITALS: BP 134/58
[2021-04-06 05:11] LABS: BASOPHILS % (AUTO) 3 % (0-1); EOSINOPHILS % (AUTO) 4 % (1-7); LYMPHOCYTES % (AUTO) 31 % (22-44); MEAN CORPUSCULAR HEMOGLOBIN 30.6 pg (27.0-34.8); MEAN CORPUSCULAR HGB CONC 33.8 g/dL (32.4-35.8); MONOCYTES % (AUTO) 8 % (2-9); NEUTROPHILS % (AUTO) 55 % (42-75); PLATELET COUNT 231 x10^3/uL (130-400); RED BLOOD COUNT 2.49 x10^6/uL (3.82-5.3); RED CELL DISTRIBUTION WIDTH 18.1 % (9.6-15.2)
[2021-04-06 05:16] LABS: ALBUMIN 3.2 g/dL (3.4-5.0); ANION GAP 8 mmol/L (5-15); CALCIUM 7.7 mg/dL (8.5-10.1); CHLORIDE 98 mmol/L (98-107); MD NO
[2021-04-06 05:17] LABS: CREATININE 5.91 mg/dL (0.55-1.02)
[2021-04-06 08:01] VITALS: BP 147/61
[2021-04-06] MEDS: INSULIN LISPRO 100 UNITS/ML, PEN SQ-INSULIN SCH ×3 (08:25→17:41)
[2021-04-06] MEDS: CARVEDILOL 25 MG TABLET PO SCH (08:32)
[2021-04-06] MEDS: BENAZEPRIL 20 MG TABLET PO SCH (08:32)
[2021-04-06] MEDS: ASPIRIN 81 MG TABLET EC PO SCH (08:32)
[2021-04-06] MEDS: PRAMIPEXOLE 0.5MG TABLET PO SCH (08:32)
[2021-04-06] MEDS: AMLODIPINE 5 MG TABLET PO SCH (08:32)
[2021-04-06] MEDS: METHOCARBAMOL 750 MG TABLET PO SCH (08:32)
[2021-04-06] MEDS: ACETAMINOPHEN 325 MG TABLET PO PRN (08:33)
[2021-04-06] MEDS ORDERED: FUROSEMIDE 20 MG/2 ML IV ONE (12:00)
[2021-04-06] MEDS ORDERED: DIPHENHYDRAMINE 12.5MG/5ML, 10ML UDC PO ONE (12:00)
[2021-04-06] MEDS ORDERED: ACETAMINOPHEN 325 MG TABLET PO ONE (12:00)
[2021-04-06] MEDS ORDERED: FERR324T5 PO (12:24)
[2021-04-06] MEDS ORDERED: INSU100I11 SQ-INSULIN ×2 (12:24→12:26)
[2021-04-06 12:39] VITALS: BP 129/68
[2021-04-06 13:33] VITALS: BP 121/68
[2021-04-06 13:54] VITALS: BP 101/57
[2021-04-06] MEDS ORDERED: FUROSEMIDE 20 MG/2 ML ONE (16:48)
[2021-04-06 16:52] VITALS: BP 112/66
== END 2021-04-06 18:02 | disposition home or self-care (01) | DRG 291 ==
LOC: ED 02:00 → INTOOBSV 02:03 → OBSVTOIN 02:03 → EDIP 02:03 → 5SO 02:39
PROVIDERS: ADMIT Family Medicine; ATTEND Internal Medicine
PROC: 5A1D70Z Performance of Urinary Filtration, Intermittent, Less than 6 Hours Per Day (ICD-10-PCS; 2021-04-05)
PROC: 30233N1 Transfusion of Nonautologous Red Blood Cells into Peripheral Vein, Percutaneous Approach (ICD-10-PCS; principal; 2021-04-06)
DX: I13.2 Hypertensive heart and chronic kidney disease with heart failure and with stage 5 chronic kidney disease, or end stage renal disease (principal); I50.21 Acute systolic (congestive) heart failure; J96.01 Acute respiratory failure with hypoxia; N18.6 End stage renal disease; E11.22 Type 2 diabetes mellitus with diabetic chronic kidney disease; E78.00 Pure hypercholesterolemia, unspecified; E78.5 Hyperlipidemia, unspecified; G25.81 Restless legs syndrome; G89.29 Other chronic pain; Z88.0 Allergy status to penicillin; D63.1 Anemia in chronic kidney disease; Z79.02 Long term (current) use of antithrombotics/antiplatelets; Z79.84 Long term (current) use of oral hypoglycemic drugs; Z99.2 Dependence on renal dialysis
CPT/HCPCS: 36415; 71045; 80048; 80053; 80069; 82607; 82728; 82962; 83036; 83540; 83550; 83880; 84443; 84466; 84484; 85014; 85018; 85025; 86850; 86900; 86923; 87040; 90935; 93005; 96372; 96374; 99285; C8929; G0378; J0881; J2405; J1815; J1940; P9016